=== PATIENT | female | born 1990 | race Two or more races ===

== ENCOUNTER 2024-07-31 06:15 | Inpatient (IN) | payer MEDICAID, SELFPAY ==
[2024-07-28 09:16] VITALS: BMI 34.5
[2024-07-28 10:09] LABS: Basophils # (Auto) 0.1 Thou/mm3 (0.0-0.2); Basophils % (Auto) 1 % (0-2.5); Eosinophils # (Auto) 0.2 Thou/mm3 (0.0-0.5); Eosinophils % (Auto) 3 % (0-10); Hematocrit 33.5 % (36.0-46.0); Immature Granulocytes % (Auto) 0 % (0-0); Immature Granulocytes Auto 0.02 Thou/mm3 (0.00-0.00); Lymphocytes % (Auto) 25 % (10-50); Mean Corpuscular HGB Conc 29.9 g/dl (31.0-37.0); Mean Corpuscular Volume 70 fL (80-100); Monocytes # (Auto) 0.4 Thou/mm3 (0.0-0.8); Monocytes % (Auto) 5 % (0-12); Neutrophils # (Auto) 5.4 Thou/mm3 (1.8-7.7); Neutrophils % (Auto) 67 % (37-80); Nucleated Red Blood Cell % 0 /100 WBC (0); Platelet Count 361 Thou/mm3 (140-440); RDW Standard Deviation 40.4 fL (36.4-46.3); Red Blood Count 4.77 Miln/mm3 (4.00-5.20); White Blood Count 8.1 Thou/mm3 (3.6-11.0)
[2024-07-28 10:24] LABS: Alanine Aminotransferase 38 U/L (10-49); Albumin, Serum 4.8 gm/dL (3.5-5.0); Albumin/Globulin Ratio 1.5 (1.2-2.2); Alkaline Phosphatase 93 U/L (46-116); Anion Gap 11 (7-16); Aspartate Amino Transferase 10 U/L (0-34); BUN/Creatinine Ratio 12 Ratio (12-20); Bilirubin,Total 0.3 mg/dL (0.3-1.2); Blood Urea Nitrogen 12 mg/dL (9-23); Calcium 9.3 mg/dL (8.3-10.6); Calcium (Corrected) 9.3 mg/dL (8.5-10.1); Carbon Dioxide 18.3 mMol/L (20.0-31.0); Chloride 107 mMol/L (98-107); Estimated Creatinine Clearance 94.9 mL/min (>60); Globulin 3.2 gm/dL (2.3-3.5); Glucose 106 mg/dL (74-106); Osmolality,Calculated 271 (275-295); Potassium 4.1 mMol/L (3.4-5.1); Sodium 136 mMol/L (136-145); eGFR > 60 See Note
[2024-07-28 10:52] LABS: HCG,Qualitative Serum Negative
[2024-07-31] VITALS (25 sets, daily range): BP systolic 90–109; BP diastolic 58–84; PULSE 66–88; RESP 14–20; TEMP 36.2–37.1; O2SAT 96–100; BMI 34.5
[2024-07-31] MEDS: RINGERS LACTATED 1000 ML 1,000 ML 20 ML IV (08:24)
--- NOTE | 2024-07-31 08:45 | ESOP_ITS ---
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 Identity was confirmed using double identifiers, and the patient was positioned in the supine position on the operating table. General anesthesia was administered. The abdomen and perineum were prepped in the usual sterile fashion, a Macario catheter was placed for continuous drainage, and sterile drapes were applied. A timeout procedure was completed. A Pfannenstiel skin incision was made with a scalpel and carried down through the subcutaneous fat to the rectus fascia, which was incised bilaterally. The rectus fascia was dissected off the anterior surface of the rectus muscle both superiorly and inferiorly. The rectus bellies were in the midline, and the peritoneum was entered bluntly. Once the bowel was safely retracted out of the operative field, the uterus was palpated, revealing two large fibroids: one measuring approximately 7 cm in the mid uterine corpus l portion and another measuring approximately 4 cm in the posterior lower posterior segment of the uterus. 15 cc of vasopressin was injected beneath the capsule of the first fibroid. The capsule was incised, and the fibroid was bluntly shelled out using the surgeon's fingers. The same procedure was repeated for the second fibroid. space was closed using separate dennhn-pq-alhus sutures with 0 Vicryl. The uterine serosa was closed with 0 Vicryl in a running locked fashion, achieving satisfactory hemostasis. The uterus was then returned to the peritoneal cavity. The peritoneal edges were reapproximated, the rectus muscles were reapproximated, and the rectus fascia was closed using 1-0 PDS Stratafix in a running fashion. The subcutaneous fat was closed with 2-0 Monocryl stratafix in multiple layers to obliterate all space. The skin was closed with higinio. The incision was cleaned, and a sterile dressing was applied. The patient was undraped, anesthesia was reversed, and the patient was transferred to the recovery room in stable and awake condition. The patient tolerated the procedure well. No complications were encountered. All instrument, sponge, and lap counts were correct ?2. Estimated blood loss (ml): 200 Surgical staff Operation Date: 07/31/24 08:45 <No data on this case meets the specified criteria> Diagnosis Discharge Diagnosis (1) Leiomyoma of uterus: Status: Acute Problem List Completed Was Problem List Reviewed/Reconciled?: Yes
--- NOTE | 2024-07-31 10:12 | SUR.PHASEI ---
pt received from OR in recovery bay 7. pt asleep but responds to voice, breathing unlabored on oxymask 8l. v/s stable. pt dressing to abd cdi. report received from Juancarlos TREJO and Carlos BERG.
[2024-07-31] MEDS: SODIUM CHLORIDE 0.9% 1000 ML 1,000 ML 200 ML IV ×3 (11:00→23:16)
[2024-07-31] MEDS: ACETAMINOPHEN IVPB 1,000 MG/100 ML VIAL 250 MG IV ×3 (11:00→23:14)
--- NOTE | 2024-07-31 11:28 | SUR.PHASEI ---
report from nurse rowan. vss. breathing even and unlabored. denies pain and nausea. dressing cdi to abdomen. christine pad in place, with scant blood.
--- NOTE | 2024-07-31 11:59 | SUR.PHASEI ---
report to nurse roberts.
[2024-07-31] MEDS: ONDANSETRON INJ 2 MG/ML INJ 2 ML 4 MG IV (13:13)
[2024-07-31] MEDS: HYDROmorphone INJ 2 MG/ML VIAL 0.4 MG IVP (13:20)
[2024-07-31] MEDS: PROMETHAZINE INJ 25 MG in SODIUM CHLORIDE 0.9% 50 ML IV (15:16)
--- NOTE | 2024-07-31 16:50 | SUR.PHASEI ---
pt asleep but responds to voice, breathing unlabored on 1 l nc. v/s stable. pt dressing to abd cdi. report called to Marimar BERG. pt will be transferred to room at this time.
--- NOTE | 2024-07-31 17:10 | PC.NURSE ---
Received pt. from OR with 2 L NC on venecia Pt. little tired and weak at this time. bilateral legs below thigh weak sensation. will continue to monitor.
[2024-07-31] MEDS: KETOROLAC INJ 30 MG/ML VIAL IVP (19:40)
[2024-07-31] MEDS: PRAZOSIN HCL 1 MG CAPSULE 2 MG PO (20:47)
[2024-08-01] VITALS (17 sets, daily range): BP systolic 100–134; BP diastolic 59–89; PULSE 70–102; RESP 17–97; TEMP 36.2–36.9; O2SAT 66–99
[2024-08-01] MEDS: SODIUM CHLORIDE 0.9% 1000 ML 1,000 ML 200 ML IV (05:10)
[2024-08-01] MEDS: ACETAMINOPHEN IVPB 1,000 MG/100 ML VIAL 250 MG IV (05:10)
[2024-08-01] MEDS: KETOROLAC INJ 30 MG/ML VIAL IVP ×3 (05:20→17:42)
[2024-08-01 05:50] LABS: Basophils % (Auto) 1 % (0-2.5); Eosinophils # (Auto) 0.1 Thou/mm3 (0.0-0.5); Eosinophils % (Auto) 2 % (0-10); Hematocrit 24.3 % (36.0-46.0); Immature Granulocytes % (Auto) 0 % (0-0); Immature Granulocytes Auto 0.03 Thou/mm3 (0.00-0.00); Lymphocytes # (Auto) 1.8 Thou/mm3 (1.0-4.8); Lymphocytes % (Auto) 21 % (10-50); Mean Corpuscular HGB Conc 29.2 g/dl (31.0-37.0); Mean Corpuscular Hemoglobin 20.8 pg (25.0-35.0); Mean Corpuscular Volume 71 fL (80-100); Monocytes # (Auto) 0.6 Thou/mm3 (0.0-0.8); Monocytes % (Auto) 6 % (0-12); Neutrophils # (Auto) 6.2 Thou/mm3 (1.8-7.7); Neutrophils % (Auto) 70 % (37-80); Nucleated Red Blood Cell % 0 /100 WBC (0); Platelet Count 262 Thou/mm3 (140-440); RDW Standard Deviation 42.1 fL (36.4-46.3); Red Blood Count 3.42 Miln/mm3 (4.00-5.20); White Blood Count 8.8 Thou/mm3 (3.6-11.0)
[2024-08-01 05:52] LABS: Hemoglobin 7.1 g/dL (12.0-16.0)
[2024-08-01 06:18] LABS: Anion Gap 7 (7-16); BUN/Creatinine Ratio 14 Ratio (12-20); Blood Urea Nitrogen 13 mg/dL (9-23); Calcium 7.9 mg/dL (8.3-10.6); Carbon Dioxide 22.7 mMol/L (20.0-31.0); Chloride 111 mMol/L (98-107); Creatinine (Component) 0.9 mg/dL (0.6-1.3); Estimated Creatinine Clearance 105.5 mL/min (>60); Glucose 145 mg/dL (74-106); Osmolality,Calculated 284 (275-295); Potassium 3.9 mMol/L (3.4-5.1); Sodium 141 mMol/L (136-145); eGFR > 60 See Note
[2024-08-01] MEDS: DOCUSATE SOD 100 MG CAPSULE PO (08:27)
--- NOTE | 2024-08-01 08:49 | ESPR_ITS ---
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 Pain is adequately controlled on the current regimen. No incisional complaints, no chest pain, shortness of breath, breathing difficulties. Ambulating, tolerating p.o., Adequate UOP Exam Vital Signs Temp Pulse Resp BP Pulse Ox O2 Del Method O2 Flow Rate 98.2 F 85 18 104/66 66 L Nasal Cannula 2 08/01/24 04:00 08/01/24 04:00 08/01/24 04:00 08/01/24 04:00 08/01/24 04:00 08/01/24 04:00 08/01/24 00:00 Constitutional Constitutional: no acute distress Routine HEENT Exam Head: Present normocephalic and atraumatic Eye: Present EOMI and PERRL ENT: Present mucous membranes moist Routine Neck Exam Neck: Present supple and trachea midline Routine Respiratory Exam Respiratory: Present chest non-tender, lungs clear, normal breath sounds and no resp distress Routine Cardiovascular Exam Cardiovascular: Present RRR Routine Abdominal Exam Abdominal: Present soft and normoactive bowel sounds Routine Extremities Exam Extremities: Present full ROM Routine Skin Exam Skin: Present intact and dry Routine Neurological Exam Neurological: Present alert, oriented X3 and CN II-XII intact Routine Psychiatric Exam Psychiatric: Present normal affect and normal thought process Urinary Catheter Management Cath placed during this visit: no BRUSH HOLDER ASSEMBLER - PN: Obj Data Labs 08/01/24 04:27 08/01/24 04:27 Labs: Laboratory Results - last 24 hr 08/01/24 04:27 WBC 8.8 RBC 3.42 L Hgb 7.1 L D Hct 24.3 L MCV 71 L MCH 20.8 L MCHC 29.2 L RDW Std Deviation 42.1 Plt Count 262 D Neut % (Auto) 70 Lymph % (Auto) 21 [place] % (Auto) 6 Eos % (Auto) 2 Baso % (Auto) 1 Neut # (Auto) 6.2 Lymph # (Auto) 1.8 [place] # (Auto) 0.6 Eos # (Auto) 0.1 Baso # (Auto) 0.0 Immature Gran # (Auto) 0.03 H Absolute Nucleated RBC 0.00 Immature Gran % 0 Nucleated RBC % 0 Sodium 141 Potassium 3.9 Chloride 111 H Carbon Dioxide 22.7 Anion Gap 7 BUN 13 Creatinine 0.9 Estim Creat Clear Calc 105.5 eGFR > 60 BUN/Creatinine Ratio 14 Glucose 145 H Calculated Osmolality 284 Calcium 7.9 L BRUSH HOLDER ASSEMBLER - A/P Assessment and plan (1) Leiomyoma of uterus: Status: Acute Assessment and plan: POD#1 1. Will transfuse 2 units of packed RBCs due to drop in hemoglobin 2. Transition to PO meds. 3. Encourage to ambulate 4. Anticipate discharge home today. 5. Home care instructions reviewed Postoperative Procedures: Procedures Operation Date: 07/31/24 08:45 Actual Procedure Side Surgeon p Abdominal Myomectomy Aaron Hernandez MD Time Spent With Patient Time: Total time spent is greater than 50% in coordination of care (as documented) at patient's floor/unit and/or counseling patient: Time with patient: less than 15 minutes
--- NOTE | 2024-08-01 08:50 | ESDS_ITS ---
Planned Discharge Date 08/01/24 DS: Providers Provider Date of admission: 07/31/24 06:15 Primary care physician: Seth Ni MD Admitting Provider: Aaron Hernandez MD Attending Provider on Admission: Aaron Hernandez MD Consults: 07/31/24 17:31 [facility] Referral - Knowledge Deficit Routine Comment: Positive screening for knowledge deficit needs. Attending Provider on DC: Aaron Hernandez MD Discharging Provider: Aaron Hernandez MD DS: Diagnosis Discharge Diagnosis (1) Leiomyoma of uterus: Status: Acute Problem List Completed Was Problem List Reviewed/Reconciled?: Yes Hospital Course Hospital Course Hospital course: Patient doing well this morning. Pain is adequately controlled on the current regimen. No incisional complaints, no chest pain, shortness of breath, breathing difficulties. 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 Vital Signs Temp Pulse Resp BP Pulse Ox O2 Del Method O2 Flow Rate 98.2 F 85 18 104/66 66 L Nasal Cannula 2 08/01/24 04:00 08/01/24 04:00 08/01/24 04:00 08/01/24 04:00 08/01/24 04:00 08/01/24 04:00 08/01/24 00:00 Discharge Plan Plan Patient Disposition: HOME (Self Care) Patient condition on transfer: Stable Prescriptions/Referrals Prescriptions/Med Rec: New hydrocodone-acetaminophen 5-325 mg Tablet 5 tab PO Q6HR MDD 4 PRN (Reason: Pain Scale 7-10 (Severe) 5 Days Qty: 20 0RF docusate sodium [Stool Softener] 100 mg capsule 100 mg PO QDAY 30 Days Qty: 30 0RF Continued prazosin 2 mg Capsule 2 mg PO QPM Referrals: Seth Ni MD [Primary Care Provider] - Aaron Hernandez MD [Physician] - Patient/Caregiver Discharge Instructions Discharge Activity: activity as tolerated Education Materials: Myomectomy Print Language: [place] Stand Alone Forms: Rukhsana Award Info., Patient Portal Info Letter, DC from Surgery
--- NOTE | 2024-08-01 11:07 | PC.SS ---
Patient is alert/oriented. Patient resides with family. Patient is independent with ADL's. Patient follows with [facility]. Patient last visit was last week. Patient OB is Dr. Hernandez at [facility]. Patient d/c plan is to return home. No further d/c needs.
[2024-08-01] MEDS: LACTULOSE SYRUP 20 GM/30 ML UDC 10 GM PO ×2 (14:39→21:03)
[2024-08-01] MEDS: HYDROcodone/APAP 5/325 TABLET 1 TAB PO (15:24)
[2024-08-01 20:39] LABS: Hematocrit 30.3 % (36.0-46.0); Hemoglobin 9.5 g/dL (12.0-16.0)
[2024-08-01] MEDS: PRAZOSIN HCL 1 MG CAPSULE 2 MG PO (21:01)
[2024-08-01] MEDS: HYDROcodone/APAP 5/325 TABLET 2 TAB PO (21:13)
[2024-08-02] VITALS: BP 127/78; PULSE 71; RESP 18; TEMP 36.7; O2SAT 96
[2024-08-02] MEDS: KETOROLAC INJ 30 MG/ML VIAL IVP ×2 (01:31→05:45)
[2024-08-02 04:00] VITALS: BP 114/78; PULSE 86; RESP 18; TEMP 36.6; O2SAT 93
[2024-08-02] MEDS: LACTULOSE SYRUP 20 GM/30 ML UDC 10 GM PO (05:45)
[2024-08-02 08:00] VITALS: BP 124/85; PULSE 89; RESP 17; TEMP 36.7; O2SAT 93
--- NOTE | 2024-08-02 08:49 | PD.LDPPPRG ---
Subjective Subjective Interval history: Patient doing well this morning. Pain is adequately controlled on the current regimen. No incisional complaints, no chest pain, shortness of breath, breathing difficulties. Ambulating, tolerating p.o., passing flatus and voiding without difficulty. Exam Vital Signs Temp Pulse Resp BP Pulse Ox O2 Del Method O2 Flow Rate 97.8 F 86 18 114/78 93 L Room Air 3 08/02/24 04:00 08/02/24 04:00 08/02/24 04:00 08/02/24 04:00 08/02/24 04:00 08/02/24 04:00 08/01/24 15:41 Constitutional Constitutional: no acute distress Routine HEENT Exam Head: Present normocephalic and atraumatic Eye: Present EOMI and PERRL ENT: Present mucous membranes moist Routine Neck Exam Neck: Present supple and trachea midline Routine Respiratory Exam Respiratory: Present chest non-tender, lungs clear, normal breath sounds and no resp distress Routine Cardiovascular Exam Cardiovascular: Present RRR Routine Abdominal Exam Abdominal: Present soft and normoactive bowel sounds Routine Extremities Exam Extremities: Present full ROM Routine Skin Exam Skin: Present intact, dry and warm Routine Neurological Exam Neurological: Present alert, oriented X3 and CN II-XII intact Routine Psychiatric Exam Psychiatric: Present normal affect and normal thought process Objective Labs 08/01/24 20:05 08/01/24 04:27 Labs: Laboratory Results - last 24 hr 08/01/24 08/01/24 08:55 20:05 Hgb 9.5 L D Hct 30.3 L Blood Type O Positive Antibody Screen NEGATIVE Crossmatch See Detail Blood Bank Wristband ID Yes Assessment & Plan Problem List (1) Leiomyoma of uterus: Status: Acute Assessment and plan: PPD/POD#2 1. Continue routine care 2. Transition to PO meds. 3. Encourage to ambulate/ breast-feed 4. Anticipate discharge home today. Time Spent With Patient Time: Total time spent is greater than 50% in coordination of care (as documented) at patient's floor/unit and/or counseling patient:
--- NOTE | 2024-08-02 08:49 | PD.GYNDS ---
Planned Discharge Date 08/02/24 DS: Providers Provider Date of admission: 07/31/24 06:15 Primary care physician: Seth Ni MD Admitting Provider: Aaron Hernandez MD Attending Provider on Admission: Aaron Hernandez MD Consults: 07/31/24 17:31 Health Equity Referral - Knowledge Deficit Routine Comment: Positive screening for knowledge deficit needs. Attending Provider on DC: Aaron Hernandez MD Discharging Provider: Aaron Hernandez MD DS: Diagnosis Discharge Diagnosis (1) Leiomyoma of uterus: Status: Acute Problem List Completed Was Problem List Reviewed/Reconciled?: Yes Hospital Course Hospital Course Hospital course: Patient is a 34-year-old who is Hospital day #2 and postoperative day #2 status post abdominal myomectomy. Patient is meeting postoperative milestones and is ready for discharge today. Time Spent with Patient Time attestation: Total time spent providing and/or coordinating discharge services: Quality: VTE Deep Vein Thrombosis/Pulmonary Embolism Present on Admission: No Exam - TODDLER NANNY Vital Signs Temp Pulse Resp BP Pulse Ox O2 Del Method O2 Flow Rate 97.8 F 86 18 114/78 93 L Room Air 3 08/02/24 04:00 08/02/24 04:00 08/02/24 04:00 08/02/24 04:00 08/02/24 04:00 08/02/24 04:00 08/01/24 15:41 Discharge Plan Plan Patient Disposition: HOME (Self Care) Patient condition on transfer: Stable Prescriptions/Referrals Prescriptions/Med Rec: New docusate sodium [Stool Softener] 100 mg capsule 100 mg PO QDAY 30 Days Qty: 30 0RF hydromorphone [Dilaudid] 2 mg tablet 2 mg PO Q6H MDD 6 PRN (Reason: pain) 7 Days Qty: 28 0RF Continued prazosin 2 mg Capsule 2 mg PO QPM Referrals: Seth Ni MD [Primary Care Provider] - Aaron Hernandez MD [Physician] - Patient/Caregiver Discharge Instructions Discharge Activity: activity as tolerated Education Materials: Myomectomy Print Language: [place] Stand Alone Forms: Rukhsana Award Info., Patient Portal Info Letter, DC from Surgery Discharge Order Discharge Orders: Discharge (Routine); Ordered 08/02/24 Ordered By: Aaron Hernandez
[2024-08-02] MEDS: DOCUSATE SOD 100 MG CAPSULE PO (08:50)
== END 2024-08-02 10:52 | disposition home or self-care (01) | DRG 519 ==
LOC: S2W1 07:19 → S3SX 17:00
PROVIDERS: Admitting Provider Obstetrics & Gynecology; PCP Family Medicine; Visit Provider Obstetrics & Gynecology
PROC: 0UB90ZZ Excision of Uterus, Open Approach (ICD-10-PCS; principal; 2024-07-31 08:30)
DX: D25.9 Leiomyoma of uterus, unspecified (principal); R71.0 Precipitous drop in hematocrit; Z90.5 Acquired absence of kidney
CPT/HCPCS: 36415; 80048; 80053; 84703; 85014; 85018; 85025; 86850; 86900; 86901; 86923; A4217; A4649; J0131; J0690; J1885; J2250; J2274; J2405; J2550; J2704; J3010; J3490; J7030; J7120; P9016; A9270; J2270; J2598